=== PATIENT | female | born 1940 | race Caucasian/White ===

== ENCOUNTER 2023-08-10 12:25 | Outpatient (CLI) | payer MEDICARE | END 2023-08-10 12:26 | disposition home or self-care (01) | LOC: SCSRAD 12:25 | DX: M54.50 Low back pain, unspecified (principal); M25.511 Pain in right shoulder; M79.641 Pain in right hand; M79.642 Pain in left hand; G89.29 Other chronic pain; M46.1 Sacroiliitis, not elsewhere classified; M16.0 Bilateral primary osteoarthritis of hip; R93.7 Abnormal findings on diagnostic imaging of other parts of musculoskeletal system; M47.898 Other spondylosis, sacral and sacrococcygeal region; M19.011 Primary osteoarthritis, right shoulder; M19.032 Primary osteoarthritis, left wrist; M19.042 Primary osteoarthritis, left hand; M18.0 Bilateral primary osteoarthritis of first carpometacarpal joints | CPT/HCPCS: 72170; 72202 ==